=== PATIENT | female | born 1995 | race Caucasian/White ===

== ENCOUNTER 2017-10-04 05:54 | Day surgery (SDC) | payer OTHER ==
[~2017-10-04] VITALS: Ht 172.7 cm; Wt 77.1 kg
[~2017-10-04 05:54] MED LIST: FOLIC ACID1 MG PO; PRENATAL VITAM1 EAC6 PO
[2017-10-04] MEDS ORDERED: TYLENOL325 MG PO (06:14)
--- NOTE | 2017-10-04 08:10 | NUR ---
10/04/17 0810 Tila Mccray DC
--- NOTE | 2017-10-20 09:50 | OR ---
[facility] [address] [place], [place] [address] Signed DATE OF OPERATION: 10/04/2017 SURGEON: Gisselle Campos MD PREOPERATIVE DIAGNOSIS: Endometrial polyps. POSTOPERATIVE DIAGNOSIS: Endometrial polyps. PROCEDURE: Hysteroscopy dilation and curettage, resection of polyps. ANESTHESIA: MAC. ESTIMATED BLOOD LOSS: Minimal. DRAINS: None. INDICATIONS AND FINDINGS: The patient is a 22-year-old female, 2, para 0, SAB 2, who has a history of the miscarriages this year as well as some irregular bleeding. During the course of her evaluation, she was found to have endometrial polyps and is now scheduled for removal. At the time of surgery, exam under anesthesia revealed a normal sized uterus with no adnexal masses. The uterus sounded to 8 cm. There were multiple polyps within the cavity. DESCRIPTION OF PROCEDURE: The patient was prepped and draped in the dorsal lithotomy position. A weighted speculum was placed and the anterior lip of the cervix was visualized and grasped with a single-tooth tenaculum. The endocervical canal was then dilated to a #8 dilator. The MyoSure device was placed, and the cavity evaluated. The multiple polyps were identified and the MyoSure LITE was then used. These multiple polyps were then removed using the MyoSure LITE device. Following this, the hysteroscopy was complete and removed. A D and C was done with a small amount of tissue seen. A repeat hysteroscopy was done, and the cavity appeared to be smooth and regular at that point, and the decision was made to terminate this. The tenaculum and speculum were removed. There was no evidence of Electronically Signed By: GISSELLE CAMPOS MD 10/20/17 0950 PATIENT NAME: JAREN CHÁVEZ OPERATIVE REPORT DATE OF : [birth year] PHYSICIAN: GISSELLE CAMPOS MD REPORT #: [id number] REPORT IS CONFIDENTIAL AND NOT TO BE RELEASED WITHOUT AUTHORIZATION [address] [place], [place] [address] Signed ongoing bleeding from the tenaculum site. The patient was then taken to the recovery room in good condition. Gisselle Campos MD PJW/MODL /[id number] cc: Rony Doe MD Electronically Signed By: GISSELLE CAMPOS MD 10/20/17 0950 PATIENT NAME: JAREN CHÁVEZ OPERATIVE REPORT DATE OF : [birth year] PHYSICIAN: GISSELLE CAMPOS MD REPORT #: [id number] REPORT IS CONFIDENTIAL AND NOT TO BE RELEASED WITHOUT AUTHORIZATION
== END 2017-10-04 08:53 | disposition home or self-care (01) ==
LOC: DS 05:54
PROVIDERS: Obstetrics & Gynecology
PROC: 0UDB8ZX Extraction of Endometrium, Via Natural or Artificial Opening Endoscopic, Diagnostic (ICD-10-PCS; 2017-10-04)
PROC: 0UB98ZX Excision of Uterus, Via Natural or Artificial Opening Endoscopic, Diagnostic (ICD-10-PCS; principal; 2017-10-04 06:45)
DX: N84.0 Polyp of corpus uteri (principal); Z88.1 Allergy status to other antibiotic agents; Z98.890 Other specified postprocedural states
CPT/HCPCS: 00952; 84703; J1100; J1170; J1885; J2250; J2405; J2704; J2765; J3010; J7120

== ENCOUNTER 2020-03-22 | Inpatient (IN) | payer OTHER ==
[~2020-03-22] MED LIST changes: +TYLENOL325 MG PO
--- NOTE | 2020-03-23 09:00 | PR ---
[facility] [address] [facility] [place], [place] [address] Signed Progress Notes IP Datetime Report Generated by CPN: 03/23/2020 09:00 PROGRESS NOTES: [id number] Impression: Normal progression of labor; Reassuring heart rate Procedures: Artificial ROM; Sterile Vag Exam Plan: Continue present management Informed Consent Obtain: Vaginal Delivery; Induction of Labor; Risks, Benefits and Alternatives Discussed VITAL SIGNS: [id number] Vital Signs: Reviewed; Within Normal Limits EXAM: [id number] Dilatation: 4.0 Effacement: 75 Station: -2 Uterine Contractions: q 2 to 3 min MEMBRANES: [id number] Membrane Status: Intact ROM Note: AROM with large amount of clear fluid Comments: Progressing. Will continue. Fetus A: [id number] FHR Baseline: 150 Variability: Moderate 6-25bpm Accelerations: 15X15 Decelerations: None FHR Category: Category I Presentation: Vertex Comments on Fetus A: No evidence of metabolic acidosis Fetus B: [id number] Signing Physician: Gisselle Campos MD Copies: ~ *Electronically Signed* 03/23/20899 GISSELLE CAMPOS MD PATIENT NAME: JAREN CHÁVEZ PROGRESS NOTE DATE OF : [birth year] PHYSICIAN: GISSELLE CAMPOS MD RPT #: [id number] REPORT IS CONFIDENTIAL AND NOT TO BE RELEASED WITHOUT AUTHORIZATION
--- NOTE | 2020-03-24 08:27 | PR ---
[facility] [address] [facility] [place], [place] [address] Signed PP Progress Notes Datetime Report Generated by CPN: 03/24/2020 08:26 SUBJECTIVE: [id number] Pain: Within normal limits Pain Comments: Baby with episode of apnea last pm Nausea/Vomiting: Denies Vital Signs: [id number] Vital Signs: Reviewed; Within Normal Limits EXAM: [id number] Cardiovascular: Not Done Respiratory: Not Done Abdomen/Uterus: Abnormal Lochia: Normal Vulva/Perineum: Not Done Breasts: Not Done CVA Tenderness: Not Done Extremities: Normal Incision: Not Applicable Progress: Normal Exam Comments: Fundus firm, NT @ U-1. H/H 9.7/29.6, WBC 7.6, plat 105k IMPRESSION/PLAN/PROCEDURES: [id number] Impression: Normal progression Other Impression: baby with apnea last pm Plan: Continue present management Progress Notes: Doing well. I suspect she will need to stay given her baby's episode of apnea. Signing Physician: Gisselle Campos MD Copies: ~ *Electronically Signed* 03/24/20825 GISSELLE CAPMOS MD PATIENT NAME: JAREN CHÁVEZ PROGRESS NOTE DATE OF : [birth year] PHYSICIAN: GISSELLE CAMPOS MD RPT #: [id number] REPORT IS CONFIDENTIAL AND NOT TO BE RELEASED WITHOUT AUTHORIZATION
--- NOTE | 2020-03-25 08:08 | PR ---
[facility] [address] [facility] [place], [place] [address] Signed PP Progress Notes Datetime Report Generated by CPN: 03/25/2020 08:08 SUBJECTIVE: [id number] Pain: Within normal limits Pain Comments: Baby with episode of apnea last pm Nausea/Vomiting: Denies Vital Signs: [id number] Vital Signs: Reviewed; Within Normal Limits EXAM: [id number] Cardiovascular: Not Done Respiratory: Not Done Abdomen/Uterus: Abnormal Lochia: Normal Vulva/Perineum: Not Done Breasts: Not Done CVA Tenderness: Not Done Extremities: Normal Incision: Not Applicable Progress: Normal Exam Comments: Fundus firm, NT @ U-1. H/H 9.4/29, WBC 7.1, plat 116k IMPRESSION/PLAN/PROCEDURES: [id number] Impression: Normal progression Other Impression: baby with apnea last pm. Plat are low today. Plan: Discharge Procedures: None Progress Notes: Doing well. She is ready for D/C. Signing Physician: Gisselle Campos MD Copies: ~ *Electronically Signed* 03/25/20 0808 GISSELLE CAMPOS MD PATIENT NAME: JAREN CHÁVEZ PROGRESS NOTE DATE OF : [birth year] PHYSICIAN: GISSELLE CAMPOS MD RPT #: [id number] REPORT IS CONFIDENTIAL AND NOT TO BE RELEASED WITHOUT AUTHORIZATION
== END 2020-03-25 20:30 | disposition home or self-care (01) | DRG 807 ==
LOC: FBC 03-23 00:06
PROVIDERS: ADMIT Obstetrics & Gynecology
PROC: 10E0XZZ Delivery of Products of Conception, External Approach (ICD-10-PCS; principal; 2020-03-23)
PROC: 0KQM0ZZ Repair Perineum Muscle, Open Approach (ICD-10-PCS; 2020-03-23)
PROC: 3E0P7VZ Introduction of Hormone into Female Reproductive, Via Natural or Artificial Opening (ICD-10-PCS; 2020-03-23)
PROC: 10907ZC Drainage of Amniotic Fluid, Therapeutic from Products of Conception, Via Natural or Artificial Opening (ICD-10-PCS; 2020-03-23)
PROC: 00HU33Z Insertion of Infusion Device into Spinal Canal, Percutaneous Approach (ICD-10-PCS; 2020-03-23)
PROC: 3E0R3BZ Introduction of Anesthetic Agent into Spinal Canal, Percutaneous Approach (ICD-10-PCS; 2020-03-23)
DX: O36.63X0 Maternal care for excessive fetal growth, third trimester, not applicable or unspecified (principal); Z37.0 Single live birth; Z3A.39 39 weeks gestation of pregnancy; O66.0 Obstructed labor due to shoulder dystocia; O70.1 Second degree perineal laceration during delivery; O69.81X0 Labor and delivery complicated by cord around neck, without compression, not applicable or unspecified; Z88.0 Allergy status to penicillin; Z88.1 Allergy status to other antibiotic agents; Z91.040 Latex allergy status
CPT/HCPCS: 01960; 36415; 85027; A9270; J2795